=== PATIENT | male | born 1960 | race Hispanic/Latino ===

== ENCOUNTER 2024-03-27 19:32 | Inpatient (IN) | payer OTHER ==
[~2024-03-27 19:32] MED LIST: Iopamidol 370 76% 100 ML VIAL ONE
[2024-03-27] MEDS ORDERED: fentaNYL 50 mcg/mL 1 mL Vial ONE ×2 (20:08→20:31)
[2024-03-27] MEDS ORDERED: Nitroglycerin 50 MG/250 ML BOT 250 ML ONE (20:09)
[2024-03-27] MEDS ORDERED: Verapamil 5 MG/2 ML VIAL ONE (20:09)
[2024-03-27] MEDS ORDERED: Adenosine 6 mg (2 mL) VIAL ONE (20:09)
[2024-03-27] MEDS ORDERED: Heparin 10,000 UNITS/ 10 ML VIAL ONE (20:09)
[2024-03-27] MEDS ORDERED: Atropine Sulfate 1 mg/10 ml Syringe ONE (20:09)
[2024-03-27] MEDS ORDERED: Midazolam HCl 2 mg/2 ml Vial ONE (20:31)
[2024-03-27] MEDS ORDERED: TICAGRELOR 90 MG TABLET ONE (21:08)
[2024-03-27] MEDS ORDERED: Acetaminophen 650 MG Suppository PR PRN (22:19)
[2024-03-27 22:29] VITALS: BMI 33.3
[2024-03-27] MEDS: Sodium Chloride 0.9% 1,000 ML IV SCH (22:54)
[2024-03-27] MEDS ORDERED: Acetaminophen/Codeine 30-300mg Tablet PO PRN (22:55)
[2024-03-27] MEDS: Nitroglycerin 0.4 MG TAB (25 Tab Bottle) SL PRN (23:18)
[2024-03-27] MEDS: Acetaminophen/Codeine 30-300mg Tablet PO PRN (23:19)
[2024-03-27] MEDS: Atorvastatin Calcium 40 MG TAB PO SCH (23:19)
[2024-03-28 04:16] LABS: #Basophils Less than 0.03 10x3/uL (0.0-0.2); #Eosinphils Less than 0.03 10x3/uL (0.0-0.7); %Basophils 0.1 % (0.0-1.0); %Eosinophils 0.1 % (0.0-10.0); %Lymphocytes 12.4 % (21.0-51.0); %Monocytes 8.1 % (0.0-10.0); Hematocrit 44.2 % (42.0-52.0); Mean Corpuscular HGB CONC 33.9 g/dL (32.0-36.0); Mean Corpuscular Hemoglobin 30.7 pg (27.0-31.0); Mean Corpuscular Volume 90.6 fL (78.0-98.0); Mean Platelet Volume 11.1 fL (7.4-10.4); Platelet Count 150 10x3/uL (130-400); RBC Distribution Width 12.5 % (11.5-14.5); Red Blood Cell (RBC) Count 4.88 mill/uL (4.70-6.10)
[2024-03-28 04:47] LABS: Anion Gap 14 mmol/L (10-20); BUN (Urea Nitrogen) 11 mg/dL (8.4-25.7); Calc. Creatinine Clearance 127 mL/min (70-130); Calcium 9.3 mg/dL (7.8-10.44); Carbon Dioxide 22 mmol/L (23-31); Chloride 104 mmol/L (98-107); Estimated GFR 98; Glucose 110 mg/dL (80-115); Sodium 136 mmol/L (136-145)
[2024-03-28] MEDS: Aspirin Chewable 81 MG TAB PO SCH (10:58)
[2024-03-28] MEDS: TICAGRELOR 90 MG TABLET PO SCH ×2 (10:58→21:06)
[2024-03-28] MEDS: Atorvastatin Calcium 40 MG TAB PO SCH (21:06)
[2024-03-29 05:58] LABS: #Basophils Less than 0.03 10x3/uL (0.0-0.2); %Basophils 0.2 % (0.0-1.0); %Eosinophils 1.7 % (0.0-10.0); %Monocytes 11.1 % (0.0-10.0); %Neutrophils 69.7 % (42.0-75.0); Hematocrit 43.7 % (42.0-52.0); Hemoglobin 14.9 g/dL (14.0-18.0); Mean Corpuscular HGB CONC 34.1 g/dL (32.0-36.0); Mean Corpuscular Hemoglobin 30.3 pg (27.0-31.0); Mean Corpuscular Volume 88.8 fL (78.0-98.0); Mean Platelet Volume 11.2 fL (7.4-10.4); Platelet Count 152 10x3/uL (130-400); RBC Distribution Width 12.9 % (11.5-14.5); Red Blood Cell (RBC) Count 4.92 mill/uL (4.70-6.10)
[2024-03-29 06:07] LABS: Hemoglobin A1c 5.7 % (4.0-6.0)
[2024-03-29 06:19] LABS: ALT (SGPT) 37 U/L (8-55); AST (SGOT) 67 U/L (5-34); Albumin 3.3 g/dL (3.4-4.8); Alkaline Phosphatase 58 U/L (40-110); Anion Gap 12 mmol/L (10-20); BUN (Urea Nitrogen) 16 mg/dL (8.4-25.7); Bilirubin, Total 1.3 mg/dL (0.2-1.2); Calc. Creatinine Clearance 101 mL/min (70-130); Calcium 9.1 mg/dL (7.8-10.44); Carbon Dioxide 24 mmol/L (23-31); Cardiac Risk 3.2 (Less than 4.5); Chloride 107 mmol/L (98-107); Cholesterol 120 mg/dl (< 200 Desired); Estimated GFR 78; Globulin 3.5 g/dL (2.4-3.5); Glucose 98 mg/dL (80-115); HDL Cholesterol 38 mg/dL (>60 Neg Risk); LDL Cholesterol, Calculated 65 mg/dL; Magnesium 2.3 mg/dL (1.6-2.6); Potassium 3.9 mmol/L (3.5-5.1); Protein, Total 6.8 g/dL (5.8-8.1); Sodium 139 mmol/L (136-145); Triglycerides 85 mg/dL (Less than 150)
[2024-03-29 07:42] VITALS: BP 120/67; TEMP 97.2
[2024-03-29] MEDS: Aspirin Chewable 81 MG TAB PO SCH (08:23)
== END 2024-03-29 11:20 | disposition home or self-care (01) | DRG 322 ==
LOC: ERS 19:32 → CCL 20:26 → CCU 21:43 → 2NO 03-28 16:47
PROVIDERS: ADMIT Internal Medicine; ATTEND Internal Medicine
PROC: 4A023N7 Measurement of Cardiac Sampling and Pressure, Left Heart, Percutaneous Approach (ICD-10-PCS; principal; 2024-03-27)
PROC: 027135Z Dilation of Coronary Artery, Two Arteries with Two Drug-eluting Intraluminal Devices, Percutaneous Approach (ICD-10-PCS; 2024-03-27)
PROC: B2111ZZ Fluoroscopy of Multiple Coronary Arteries using Low Osmolar Contrast (ICD-10-PCS; 2024-03-27)
PROC: B2151ZZ Fluoroscopy of Left Heart using Low Osmolar Contrast (ICD-10-PCS; 2024-03-27)
DX: I21.09 ST elevation (STEMI) myocardial infarction involving other coronary artery of anterior wall (principal); I10 Essential (primary) hypertension; Z87.891 Personal history of nicotine dependence
CPT/HCPCS: 36415; 80048; 80053; 80061; 83036; 83735; 85025; 85347; 92929; 92941; 93005; 93306; 93458; 96374; 99152; 99153; C1725; C1874; C1887; C1894; C9601; C9606; J0153; J0461; J1644; J2250; J3010; J7030; Q9967